=== PATIENT | female | born 1945 | race Caucasian/White ===

== ENCOUNTER 2019-07-24 20:22 | Emergency (ER) | payer OTHER ==
[~2019-07-24] VITALS: Ht 152.4 cm; Wt 62.1 kg
[2019-07-24 20:26] VITALS: Ht 152.4 cm; Wt 62.1 kg
[2019-07-24 22:34] VITALS: BP 127/74
== END 2019-07-24 22:34 | disposition home or self-care (01) ==
LOC: ED 20:22
DX: I10 Essential (primary) hypertension (principal); E11.9 Type 2 diabetes mellitus without complications; E78.00 Pure hypercholesterolemia, unspecified